=== PATIENT | female | born 1955 | race Caucasian/White ===

== ENCOUNTER 2024-06-18 13:36 | Emergency (ER) | payer MEDICARE, OTHER ==
[~2024-06-18] VITALS: Ht 162.5 cm; Wt 61.2 kg
[2024-06-18] MEDS ORDERED: LORazepam 1 MG TAB PO ONE (15:30)
[2024-06-18] MEDS ORDERED: CITALOPRAM 20 MG TAB PO ONE (15:30)
[2024-06-18] MEDS ORDERED: CIPRO500 MG PO (21:30)
[2024-06-18] MEDS ORDERED: K-TAB20 MEQ PO (21:30)
== END 2024-06-18 16:41 | disposition home or self-care (01) ==
LOC: ED 13:36
DX: F41.9 Anxiety disorder, unspecified (principal); F32.A Depression, unspecified

== ENCOUNTER 2024-06-18 17:52 | Emergency (ER) | payer MEDICARE, OTHER ==
[~2024-06-18] VITALS: Ht 165.1 cm; Wt 61.2 kg
[2024-06-18 18:28] LABS: BASO % 0.7 % (0.0-1.0); EOS # 0.1 10*3/uL (0.0-0.4); EOS % 2.7 % (1.0-4.0); HEMATOCRIT 30.9 % (37.0-47.0); LYMPH # 1.6 10*3/uL (1.3-4.4); LYMPH % 35.6 % (27.0-41.0); MEAN CELL VOLUME 93.4 fl (81.0-99.0); MEAN CORPUSCULAR HGB 28.7 pg (27.0-31.0); MEAN CORPUSCULAR HGB CONC 30.7 g/dl (33.0-37.0); MEAN PLATELET VOLUME 9.4 fl (9.6-12.3); MONO # 0.4 10*3/uL (0.1-1.0); MONO % 9.5 % (3.0-9.0); NEUT # 2.3 10*3/uL (2.3-7.9); NEUT % 51.3 % (47.0-73.0); PLATELET COUNT AUTOMATED 292 10*3/uL (130-400); RED BLOOD COUNT 3.31 10*6/uL (4.10-5.10); RED CELL DISTRI WIDTH 15.7 % (0-14.5); WHITE BLOOD COUNT 4.5 10*3/uL (4.8-10.8)
[2024-06-18 18:49] LABS: ALKALINE PHOSPHATASE 63 U/L (46-116); BUN 8 mg/dl (9-23); CHLORIDE 106 mmol/L (98-107); CPK 103 U/L (34-171); POTASSIUM 2.8 mmol/L (3.4-5.1); SGPT/ALT 12 U/L (5-49); TOTAL PROTEIN 6.4 gm/dL (6.0-8.0)
[2024-06-18 18:54] LABS: ETHYL ALCOHOL < 3.0 mg/dl (<3)
[2024-06-18] MEDS ORDERED: POTASSIUM CHLORIDE 20 MEQ TAB PO ONE (18:55)
[2024-06-18 19:18] LABS: BILIRUBIN Negative (Negative); BLOOD Negative (Negative); CLARITY Clear (Clear); COLOR Yellow (Yellow); GLUCOSE Negative (Negative); KETONE Trace (Negative); LEUKO ESTERASE 2+ (Negative); NITRITE Negative (Negative); PH 6.5 (4.5-8.0); SPECIFIC GRAVITY 1.025 (1.001-1.030); UROBILINOGEN 0.2 E.U./dl (0.0-1.0)
[2024-06-18 19:26] LABS: URINE AMPHETAMINES Negative (1000ng/ml); URINE BARBITURATES Negative (200ng/ml); URINE BENZODIAZEPINES Negative (200ng/ml); URINE CANNABINOIDS (THC) Negative (50ng/ml); URINE COCAINE Negative (300ng/ml); URINE METHADONE Negative (300ng/ml); URINE OPIATES Negative (300ng/ml); URINE PHENCYCLIDINE Negative (25ng/ml)
[2024-06-18 19:47] LABS: BACTERIA 1+; MUCOUS 1+; RBC 0-2 rbc/hpf (0-2); WBC 21-30 wbc/hpf (0-5)
[2024-06-18] MEDS ORDERED: CIPRO500 MG PO (21:30)
[2024-06-18] MEDS ORDERED: K-TAB20 MEQ PO (21:30)
== END 2024-06-18 21:55 | disposition home or self-care (01) ==
LOC: ED 17:52
PROVIDERS: Nurse Practitioner Family
DX: F43.23 Adjustment disorder with mixed anxiety and depressed mood (principal); Z20.822 Contact with and (suspected) exposure to COVID-19; E87.6 Hypokalemia; N39.0 Urinary tract infection, site not specified; Z79.899 Other long term (current) drug therapy